=== PATIENT | male | born 1990 | race African-American/Black ===

== ENCOUNTER 2016-11-19 23:30 | Emergency (ER) | payer MEDICAID ==
--- NOTE | 2016-11-19 23:34 | ED Physician Chart ---
Chief Complaint/HPI - Patient Information Date Seen:: 11/19/16 Time Seen:: 23:34 Chief Complaint:: altered level of consciousness History of Present Illness:: 26-year-old male with apparent history of schizophrenia, brought in by ambulance with acute, moderate to severe, altered level of consciousness. Patient was patent about 20 minutes prior to arrival because friends had called 911 because he appeared to be more altered than usual. Patient admits to smoking marijuana. Patient denies any pain. Patient is acting as though he is under the influence of some type of street drugs. Staring off into space. Becoming agitated and aggressive. According to EMS he was recently released from a psychiatric facility. History limited patient has altered level of consciousness Most of history is provided by EMS Allergies:: Allergies Allergy/AdvReac Type Severity Reaction Status Date / Time MDX No Known Allergies - Nka Allergy Verified 04/08/14 00:01 [No Known Allergies - Nka] Historian:: Patient, EMS Review:: Nurse's Note Reviewed, EMS run form Reviewed Review of Systems - Review of Systems Other: Complete system review otherwise unremarkable except as noted in history of present illness. Past Medical History - Past Medical History Past Medical History: Other (schizophrenia) Family History: None Social History: Non Smoker, No Alcohol, Illicit Drug Use, Other Surgical History: None Psychiatricy History: None Medication: None Family Medical History - Family Member Mother Ethnicity: Unknown Living Status: Still Living Hx Family Cancer: No Hx Family Coronary Artery Disease: No Hx Family Congestive Heart Failure: No Hx Family Hypertension: No Hx Family Stroke: No Hx Family Diabetes: No Hx Family Seizures: No Hx Family Dementia: No Hx Family AIDS: No Hx Family HIV: No Hx Family COPD: No Hx Family Hepatitis: No Hx Family Psychiatric Problems: No Hx Family Tuberculosis: No Grandfather History Unknown: Yes Ethnicity: Non- Living Status: Still Living Hx Family Cancer: No Hx Family Coronary Artery Disease: No Hx Family Congestive Heart Failure: No Hx Family Hypertension: Yes Hx Family Stroke: No Hx Family Diabetes: No Hx Family Seizures: No Hx Family Dementia: No Hx Family AIDS: No Hx Family HIV: No Hx Family COPD: No Hx Family Hepatitis: No Hx Family Psychiatric Problems: No Hx Family Tuberculosis: No ED Septic Shock - . Is Septic Shock (SBP<90, OR Lactate>4 mmol\L) present?: No Reassessment (Disposition) - Reassessment Reassessment:: ED observation Note: Patient placed in ED observation status at: 0135am, to determine need for admission vs. potential discharge and outpatient follow-up. Patent re-evaluated every two hours during the ED course. Old records requested and reviewed. Additional history obtained from all available sources. Unable to find family history. Observation course revealed: Returned to alert and oriented 4. Patient very rational. At the time of final evaluation the patient appears appropriate for discharge and outpatient follow-up. Treated as: Altered level of consciousness Total ED observation time is greater than 3 hours. Total ED observation time was approximately 5.5 hours Blood pressure was noted to be elevated over 120/80. There were no signs of hypertension. Discussed the findings with the patient and recommended that the patient follow up with the primary care physician regarding the elevated blood pressure. Brought in with altered level of consciousness. Appears to be altered due to drug ingestion. Received some muscular sedation due to severe agitation and was endangering himself and staff. Patient became much more cooperative. Patient was allowed to metabolize the drugs. He stayed in the ER for some time. In the morning he was alert and oriented 4 and was ambulatory with no gait abnormalities. Patient was discharged home. Reassessment Condition:: Improved - Diagnosis Diagnosis:: Altered level of consciousness due to drug ingestion Elevated blood pressure without the diagnosis of hypertension - Aftercare/Follow up Instructions Aftercare/Follow-Up Instructions:: Counseled pt regarding lab results/diagnosis & need follow up, Refer to Discharge Instructions - Patient Disposition Discharge/Transfer:: Home Time:: 07:20 Condition at Disposition:: Improved ED Discharge Plan - Patient Disposition Admit/Discharge/Transfer: PT DISCHARGED HOME Condition at Disposition: Improved Instructions: Marijuana Abuse-Brief
[2016-11-19] MEDS ORDERED: Sodium Chloride 0.9% 1,000 ML IV ONE (23:37)
[2016-11-19] MEDS ORDERED: OLANZapine 5 mg Oral Disintegrating Tab PO ONE (23:47)
[2016-11-19] MEDS ORDERED: Haloperidol Lactate 5 mg/mL 1mL Vial IM STA (23:49)
[2016-11-20 00:19] LABS: % BASOPHILS 0.2 % (0.0-2.0); % EOSINOPHILS 1.8 % (0.0-5.0); % LYMPHOCYTES 32.5 % (20.0-50.0); % MONOCYTES 9.7 % (2.0-10.0); % NEUTROPHILS 55.8 % (40.0-80.0); HEMATOCRIT 46.5 % (39.0-49.0); HEMOGLOBIN 15.5 gm/dL (13.2-17.3); MEAN CELL VOLUME 89.7 fl (80-99); MEAN CORPUSCULAR HGB CONC 33.4 pg (28.0-36.0); MEAN PLATELET VOLUME 8.6 fl; NEUTROPHILE ABSOLUTE 6.1 Th/cmm (1.8-8.0); PLATELET COUNT 213 Th/cmm (150-400); RED BLOOD COUNT 5.18 Mil/cmm (4.30-5.70); RED CELL DISTRIBUTION WIDTH 12.5 % (11.5-20.0)
[2016-11-20 00:22] LABS: WHITE BLOOD COUNT 10.8 Th/cmm (4.8-10.8)
[2016-11-20 00:27] LABS: ALB/GLOB RATIO 1.4 (1.0-1.8); ALKALINE PHOSPHATASE 53 U/L (34-104); BILIRUBIN,TOTAL 0.4 mg/dL (0.3-1.0); BUN - UREA NITROGEN 13 mg/dL (7-25); BUN/CREATININE RATIO 14.4; CALCIUM SERUM 9.4 mg/dL (8.6-10.3); CARBON DIOXIDE 27.4 mEq/L (21.0-31.0); CHLORIDE 103 mEq/L (98-107); CREATININE - SERUM 0.9 mg/dL (0.7-1.3); GLUCOSE 138 mg/dL (70-105); POTASSIUM SERUM 3.4 mEq/L (3.5-5.1); SGOT 17 U/L (13-39); SGPT/ALT 15 U/L (7-52); SODIUM SERUM 135 mEq/L (136-145)
[2016-11-20 02:18] LABS: URINE BILIRUBIN SMALL (NEGATIVE); URINE BLOOD NEGATIVE (NEGATIVE); URINE COLOR YELLOW; URINE GLUCOSE (UA) NEGATIVE (NEGATIVE); URINE KETONE TRACE mg/dL (NEGATIVE)
[2016-11-20 02:19] LABS: URINE BACTERIA FEW /hpf (NONE SEEN); URINE EPITHELIAL CELLS MODERATE /lpf (FEW); URINE PROTEIN 30 mg/dL (NEGATIVE); URINE RBC 0-2 /hpf (0-5); URINE UROBILINOGEN 0.2 E.U./dL (0.2 - 1.0)
[2016-11-20 02:26] LABS: AMPHETAMINE URINE NEGATIVE (NEGATIVE); BARBITURATES URINE NEGATIVE (NEGATIVE); METHADONE URINE NEGATIVE (NEGATIVE)
== END 2016-11-20 07:20 | disposition home or self-care (01) ==
LOC: ER 23:30
DX: R40.4 Transient alteration of awareness (principal); T40.7X5A Adverse effect of cannabis (derivatives), initial encounter; R03.0 Elevated blood-pressure reading, without diagnosis of hypertension; F20.9 Schizophrenia, unspecified; Y92.89 Other specified places as the place of occurrence of the external cause
CPT/HCPCS: 36415-UA; 80053-TC; 80320-TC; 81001-TC; 85025-TC; Z7502

== ENCOUNTER 2016-11-22 11:01 | Emergency (ER) | payer MEDICAID ==
[2016-11-22 11:53] LABS: % LYMPHOCYTES 10.9 % (20.0-50.0); % NEUTROPHILS 84.1 % (40.0-80.0); HEMATOCRIT 45.7 % (39.0-49.0); HEMOGLOBIN 15.3 gm/dL (13.2-17.3); MEAN CELL VOLUME 89.5 fl (80-99); MEAN CORPUSCULAR HEMOGLOBIN 30.1 pg (26.0-30.0); MEAN CORPUSCULAR HGB CONC 33.6 pg (28.0-36.0); MEAN PLATELET VOLUME 8.7 fl; NEUTROPHILE ABSOLUTE 9.9 Th/cmm (1.8-8.0); PLATELET COUNT 216 Th/cmm (150-400); RED CELL DISTRIBUTION WIDTH 12.5 % (11.5-20.0); WHITE BLOOD COUNT 11.8 Th/cmm (4.8-10.8)
[2016-11-22 12:04] LABS: AMPHETAMINE URINE NEGATIVE (NEGATIVE); BARBITURATES URINE NEGATIVE (NEGATIVE); METHADONE URINE NEGATIVE (NEGATIVE)
[2016-11-22 12:08] LABS: ACETAMINOPHEN < 10.0 ug/mL (10.0-30.0); ANION GAP 4.9 (7.0-16.0); BUN - UREA NITROGEN 11 mg/dL (7-25); BUN/CREATININE RATIO 12.2; CALCIUM SERUM 9.9 mg/dL (8.6-10.3); CARBON DIOXIDE 33.2 mEq/L (21.0-31.0); CHLORIDE 104 mEq/L (98-107); CREATININE - SERUM 0.9 mg/dL (0.7-1.3); GLUCOSE 93 mg/dL (70-105); POTASSIUM SERUM 4.1 mEq/L (3.5-5.1); SODIUM SERUM 138 mEq/L (136-145)
--- NOTE | 2016-11-22 12:31 | ED Physician Chart ---
Chief Complaint/HPI - Patient Information Date Seen:: 11/22/16 Time Seen:: 11:15 Chief Complaint:: thoughts of self-harm History of Present Illness:: Patient ran out of his medications of Ativan and Zyprexa yesterday. He is homeless. He was last given a prescription for medication 3 days ago in [place]. Patient wishes to go to [facility]. He was last there sometime between 2 weeks ago and. 4 weeks ago. Patient has suicide ideation walking in traffic for jumping off something. Jumping off something is patient's exact words. Allergies:: Allergies Allergy/AdvReac Type Severity Reaction Status Date / Time No Known Allergies Allergy Verified 11/19/16 23:53 Vitals:: Vital Signs - 8 hr 11/22/16 11:26 Temp 97.9 F HR 66 RR 16 O2 Sat % 98 Historian:: Patient, EMS Review:: Nurse's Note Reviewed Review of Systems - Review of Systems General/Constitutional: No fever, No chills Skin: No skin lesions Head: No headache Eyes: No loss of vision ENT: No earache Neck: No neck pain Cardio Vascular: No chest pain, No palpitations Pulmonary: No SOB GI: No nausea, No vomiting G/U: No dysuria Musculoskeletal: No bone or joint pain Endocrine: No polyuria, No polydipsia Psychiatric: Prior psych history, Suicidal ideation Hematopoietic: No bruising, No lymphadenopathy Allergic/Immuno: No urticaria Neurological: No syncope, No focal symptoms Past Medical History - Past Medical History Past Medical History: No significant medical hx Family History: Diabetes Melitus, HTN Social History: Smoker, Other (smokes about 2 cigarettes a day) Surgical History: other (mandibular fracture) Medication: Reviewed Family Medical History - Family Member Father Hx Family Hypertension: Yes Hx Family Diabetes: Yes Mother Ethnicity: Unknown Living Status: Still Living Hx Family Cancer: No Hx Family Coronary Artery Disease: No Hx Family Congestive Heart Failure: No Hx Family Hypertension: No Hx Family Stroke: No Hx Family Diabetes: No Hx Family Seizures: No Hx Family Dementia: No Hx Family AIDS: No Hx Family HIV: No Hx Family COPD: No Hx Family Hepatitis: No Hx Family Psychiatric Problems: No Hx Family Tuberculosis: No Grandfather History Unknown: Yes Ethnicity: Non- Living Status: Still Living Hx Family Cancer: No Hx Family Coronary Artery Disease: No Hx Family Congestive Heart Failure: No Hx Family Hypertension: Yes Hx Family Stroke: No Hx Family Diabetes: No Hx Family Seizures: No Hx Family Dementia: No Hx Family AIDS: No Hx Family HIV: No Hx Family COPD: No Hx Family Hepatitis: No Hx Family Psychiatric Problems: No Hx Family Tuberculosis: No Physical Exam - Physical Examination General/Constitutional: Well-developed, well-nourished, Alert, No distress Head: Atraumatic Eyes: Lids, conjuctiva normal, PERRL Skin: Nl inspection, No rash, No skin lesions, No ecchymosis, Well hydrated, No lymphadenopathy ENMT: External ears, nose nl, TM canals nl, Nasal exam nl, Lips, teeth, gums nl , Oropharynx nl, Tonsils nl Neck: No nuchal rigidity Respiratory: Nl effort/Exclusion, Clear to Auscultation, No Wheeze/Rhonchi/Rales Cardio Vascular: RRR, No murmur, gallop, rubs GI: No tenderness/rebounding/guarding, No organomegaly, No hernia : No CVA tenderness Extremities: No tenderness or effusion, Full ROM, normal strength in all extremities, No edema, Normal digits & nails Neuro/Psych: Alert/oriented, No focal deficits Misc: Normal back Labs/Radiology/EKG Results - Lab Results Results: Laboratory Tests 11/22/16 11/22/16 11/22/16 11:30 11:40 11:40 WBC 11.8 H RBC 5.10 Hgb 15.3 Hct 45.7 MCV 89.5 MCH 30.1 H MCHC Differential 33.6 RDW 12.5 Plt Count 216 MPV 8.7 Neutrophils % 84.1 H Lymphocytes % 10.9 L Monocytes % 4.0 Eosinophils % 1.0 Basophils % 0.0 Sodium 138 Potassium 4.1 Chloride 104 Carbon Dioxide 33.2 H Anion Gap 4.9 L BUN 11 Creatinine 0.9 Est GFR ( Amer) > 60.0 Est GFR (Non-Af Amer) > 60.0 BUN/Creatinine Ratio 12.2 Glucose 93 Calcium 9.9 Salicylates < 25.0 L Urine Opiates Screen NEGATIVE Urine Methadone Screen NEGATIVE Acetaminophen < 10.0 L Ur Barbiturates Screen NEGATIVE Ur Tricyclics Screen NEGATIVE Ur Phencyclidine Scrn NEGATIVE Amphetamines Screen NEGATIVE U Methamphetamines Scrn NEGATIVE U Benzodiazepines Scrn POSITIVE H U Cocaine Metab Screen NEGATIVE U Cannabinoids Screen POSITIVE H Ethyl Alcohol < 10 Assessment - Assessment General Assessment: Patient eloped from the emergency department at at about 1305. Police were notified. ED Septic Shock - . Is Septic Shock (SBP<90, OR Lactate>4 mmol\L) present?: No - <6hrs of presentation: Vital Signs: Vital Signs - 8 hr 11/22/16 11:26 Temp 97.9 F HR 66 RR 16 O2 Sat % 98 Reassessment (Disposition) - Reassessment Reassessment Condition:: Unchanged - Diagnosis Diagnosis:: Bipolar disorder; schizophrenia; depression; suicidal ideation - Patient Disposition Discharge/Transfer:: Elope/AWOL Condition at Disposition:: Stable, Unchanged
== END 2016-11-22 13:05 | disposition left against medical advice (07) ==
LOC: ER 11:01
DX: R45.851 Suicidal ideations (principal); F31.9 Bipolar disorder, unspecified; F20.9 Schizophrenia, unspecified; F17.210 Nicotine dependence, cigarettes, uncomplicated
CPT/HCPCS: 36415-UA; 80048-TC; 80320-TC; 80329-TC; 85025-TC; Z7502

== ENCOUNTER 2017-08-22 13:57 | Inpatient (IN) | payer MEDICAID ==
--- NOTE | 2017-08-22 14:37 | ED Physician Chart ---
ED Chief Complaint/HPI - Patient Information Date Seen:: 08/22/17 Time Seen:: 14:15 Chief Complaint:: Chest Pain History of Present Illness:: onset x one day of intermittent, MS type, dull, right Chest Pain with psychotic behavior; no trauma, H/As, neck pain, SOB, cough, Abd. Pain, A/N/V/d/c, fever, chills, or urinary s/s; no report of SIs Allergies:: Allergies Allergy/AdvReac Type Severity Reaction Status Date / Time No Known Allergies Allergy Verified 08/22/17 14:22 Vitals:: Vital Signs - 8 hr 08/22/17 14:18 Temp 98.8 F HR 84 RR 16 BP 146/96 O2 Sat % 97 Historian:: Patient, EMS Review:: Nurse's Note Reviewed, EMS run form Reviewed ED Review of Systems - Review of Systems General/Constitutional: No fever, No chills, No weight loss, No weakness, No diaphoresis, No edema, No loss of appetite Skin: No skin lesions, No rash, No bruising Head: No headache, No light-headedness Eyes: No loss of vision, No pain, No diplopia ENT: No earache, No nasal drainage, No sore throat, No tinnitus Neck: No neck pain, No swelling, No thyromegaly, No stiffness, No mass noted Cardio Vascular: Chest pain, No palpitations, No PND, No orthopnea, No edema Pulmonary: No SOB, No cough, No sputum, No wheezing GI: No nausea, No vomiting, No diarrhea, No pain, No melena, No hematochezia, No constipation, No hematemesis G/U: No dysuria, No frequency, No hematuria, No nacturia Musculoskeletal: No bone or joint pain, No back pain, No muscle pain Endocrine: No polyuria, No polydipsia Psychiatric: Prior psych history, No depression, No anxiety, No suicidal ideation, No homicidal ideation, Auditory hallucination, No visual hallucination Hematopoietic: No bruising, No lymphadenopathy Allergic/Immuno: No urticaria, No angioedema Neurological: No syncope, No focal symptoms, No weakness, No paresthesia, No headache, No seizure, No dizziness, No confusion, No vertigo ED Past Medical History - Past Medical History Obtainable: Yes Past Medical History: No significant medical hx Family History: None Social History: Non Smoker, No Alcohol, No Drug Use, Single Surgical History: None Psychiatricy History: Schizophrenia, Bipolar Medication: Reviewed Family Medical History - Family Member Father History Unknown: Yes Ethnicity: Non- Living Status: Unknown Hx Family Hypertension: Yes Hx Family Diabetes: Yes Mother Ethnicity: Unknown Living Status: Still Living Hx Family Cancer: No Hx Family Coronary Artery Disease: No Hx Family Congestive Heart Failure: No Hx Family Hypertension: No Hx Family Stroke: No Hx Family Diabetes: No Hx Family Seizures: No Hx Family Dementia: No Hx Family AIDS: No Hx Family HIV: No Hx Family COPD: No Hx Family Hepatitis: No Hx Family Psychiatric Problems: No Hx Family Tuberculosis: No Grandfather History Unknown: Yes Ethnicity: Non- Living Status: Still Living Hx Family Cancer: No Hx Family Coronary Artery Disease: No Hx Family Congestive Heart Failure: No Hx Family Hypertension: Yes Hx Family Stroke: No Hx Family Diabetes: No Hx Family Seizures: No Hx Family Dementia: No Hx Family AIDS: No Hx Family HIV: No Hx Family COPD: No Hx Family Hepatitis: No Hx Family Psychiatric Problems: No Hx Family Tuberculosis: No ED Physical Exam - Physical Examination General/Constitutional: Awake, Well-developed, well-nourished, Alert, No distress, GCS 15, Non-toxic appearing, Ambulatory Head: Atraumatic Eyes: Lids, conjuctiva normal, PERRL, EOMI Skin: Nl inspection, No rash, No skin lesions, No ecchymosis, Well hydrated, No lymphadenopathy ENMT: External ears, nose nl, TM canals nl, Nasal exam nl, Lips, teeth, gums nl , Oropharynx nl, Tonsils nl Neck: Nontender, Full ROM w/o pain, No JVD, No nuchal rigidity, No bruit, No mass, No stridor Respiratory: Nl effort/Exclusion, Clear to Auscultation, No Wheeze/Rhonchi/Rales Cardio Vascular: RRR, No murmur, gallop, rubs, NL S1 S2, Carotid/Femoral/Distal pulses equal bilaterally GI: No tenderness/rebounding/guarding, No organomegaly, No hernia, Normal BS's, Nondistended, No mass/bruits, No McBurney tenderness : No CVA tenderness Extremities: No tenderness or effusion, Full ROM, normal strength in all extremities, No edema, Normal digits & nails Neuro/Psych: Alert/oriented, DTR's symmetric, Normal sensory exam, Normal motor strength, Judgement/insight normal, Mood normal, Normal gait, No focal deficits Other Neuro/Psych comments:: + Psychomotor Agitation; + Hallucinations; Mood/Affect: Labile Misc: Normal back, No paraspinal tenderness ED Septic Shock - . Is Septic Shock (SBP<90, OR Lactate>4 mmol\L) present?: No - <6hrs of presentation: Vital Signs: Vital Signs - 8 hr 08/22/17 14:18 Temp 98.8 F HR 84 RR 16 BP 146/96 O2 Sat % 97 ED Reassessment (Disposition) - Reassessment Reassessment Condition:: Improved - Diagnosis Diagnosis:: Chest Wall Pain; Costochondritis; Hallucinations; Schizophrenia; Psychosis; Bipolar Disorder
[2017-08-22] MEDS ORDERED: Haloperidol Lactate 5 mg/mL 1mL Vial IM STA ×2 (14:38→17:40)
[2017-08-22] MEDS ORDERED: Haloperidol Lactate 5 mg/mL 1mL Vial ONE ×2 (14:39→17:41)
[2017-08-22] MEDS ORDERED: cefTRIAXone 1 GM in Sodium Chloride 0.9% 50 ML IV ONE (14:43)
[2017-08-22 15:08] LABS: INR 1.05 (0.5-1.4); PROTHROMBIN TIME (TEST) 10.9 SECONDS (9.5-11.5)
[2017-08-22 15:09] LABS: % EOSINOPHILS 0.8 % (0.0-5.0); % LYMPHOCYTES 16.7 % (20.0-50.0); % MONOCYTES 6.6 % (2.0-10.0); % NEUTROPHILS 75.9 % (40.0-80.0); EOSINOPHILE ABSOLUTE 0.1 Th/cmm (0.1-0.4); HEMATOCRIT 49.6 % (41.0-60); HEMOGLOBIN 16.2 gm/dL (12-16); MEAN CORPUSCULAR HEMOGLOBIN 29.8 pg (26.0-30.0); MEAN CORPUSCULAR HGB CONC 32.7 pg (28.0-36.0); MEAN PLATELET VOLUME 8.5 fl; MONOCYTE ABSOLUTE 0.8 Th/cmm (0.3-1.0); PLATELET COUNT 258 Th/cmm (150-400); RED BLOOD COUNT 5.45 Mil/cmm (4.30-5.70); WHITE BLOOD COUNT 11.9 Th/cmm (4.8-10.8)
[2017-08-22 15:13] LABS: ALB/GLOB RATIO 1.2 (1.0-1.8); ALBUMIN 4.6 gm/dL (4.2-5.5); ALKALINE PHOSPHATASE 55 U/L (34-104); ANION GAP 12.1 (7.0-16.0); BILIRUBIN,TOTAL 0.6 mg/dL (0.3-1.0); BUN - UREA NITROGEN 10 mg/dL (7-25); CALCIUM SERUM 10.1 mg/dL (8.6-10.3); CARBON DIOXIDE 27.2 mEq/L (21.0-31.0); CHLORIDE 99 mEq/L (98-107); CHOLESTEROL 124 mg/dL (<200); CREATININE KINASE 1036 U/L (30-223); GFR AFRICAN-AMERICAN > 60.0 ml/min (>90); GFR NON AFRICAN-AMERICAN > 60.0 ml/min; GLUCOSE 85 mg/dL (70-105); HDL -HIGH DENSITY LIPOPROTEIN 49 mg/dL (23-92); POTASSIUM SERUM 3.3 mEq/L (3.5-5.1); SGOT 44 U/L (13-39); SGPT/ALT 23 U/L (7-52); SODIUM SERUM 135 mEq/L (136-145); TOTAL PROTEIN,SERUM 8.4 gm/dL (6.0-8.3); TRIGLYCERIDES 43 mg/dL (<150)
[2017-08-22 15:15] LABS: ACETAMINOPHEN < 10.0 ug/mL (10.0-30.0); SALICYLATES (ASPIRIN) < 25.0 mg/L (30.0-100.0)
[2017-08-22 16:50] LABS: A1C % 5.4 % (4.0-6.0)
[2017-08-22 18:19] LABS: URINE MICROSCOPIC INDICATED? YES; URINE SOURCE CLEAN C
[2017-08-22 18:26] LABS: URINE BILIRUBIN NEGATIVE (NEGATIVE); URINE BLOOD NEGATIVE (NEGATIVE); URINE GLUCOSE (UA) NEGATIVE (NEGATIVE); URINE KETONE 40 mg/dL (NEGATIVE); URINE LEUKOCYTE ESTERASE NEGATIVE (NEGATIVE); URINE NITRATE NEGATIVE (NEGATIVE); URINE PROTEIN TRACE mg/dL (NEGATIVE); URINE UROBILINOGEN 0.2 E.U./dL (0.2 - 1.0)
[2017-08-22 18:38] LABS: URINE CLARITY CLEAR (CLEAR); URINE COLOR YELLOW
[2017-08-22 18:39] LABS: URINE BACTERIA NONE SEEN /hpf (NONE SEEN); URINE EPITHELIAL CELLS NONE SEEN /lpf (FEW); URINE RBC NONE SEEN /hpf (0-5); URINE WBC NONE SEEN /hpf (0-5)
[2017-08-22 18:56] LABS: AMPHETAMINE URINE NEGATIVE (NEGATIVE); BARBITURATES URINE NEGATIVE (NEGATIVE); BENZODIAZEPINES QUAL URINE NEGATIVE (NEGATIVE); CANNABINOID THC POSITIVE (NEGATIVE); COCAINE METABOLITE QUAL URINE NEGATIVE (NEGATIVE); METHADONE URINE NEGATIVE (NEGATIVE); METHAMPHETAMINES QUAL URINE NEGATIVE (NEGATIVE); OPIATES (MORPHINE) QUAL. URINE NEGATIVE (NEGATIVE); PHENCYCLIDINE (PCP) URINE NEGATIVE (NEGATIVE); TRICYCLICS (TCA) QUAL. URINE NEGATIVE (NEGATIVE)
[2017-08-22] MEDS ORDERED: Potassium Chloride 20 mEq ER Tab PO ONE ×2 (19:46→19:47)
[2017-08-22] MEDS ORDERED: Aspirin 325 mg EC PO ONE (20:05)
[2017-08-22] MEDS ORDERED: Aspirin 81mg Chewable Tab ONE (20:29)
[2017-08-22] MEDS ORDERED: Morphine Sulfate 2 mg/mL 1mL Syr IVP PRN (21:16)
[2017-08-22] MEDS ORDERED: Potassium Chloride 20 mEq ER Tab PO PRN (21:16)
[2017-08-22] MEDS ORDERED: Potassium Chloride 40 MEQ, Lidocaine 1% 20mL Vial 25 MG in Sodium Chloride 0.9% 250 ML IV PRN (21:16)
[2017-08-22] MEDS ORDERED: Mag Sulfate 2gm/50mL Premix 2 GM/50 ML BAG IV PRN (21:16)
[2017-08-22] MEDS ORDERED: Sodium Chloride 0.9% 1,000 ML IV SCH ×2 (21:30)
[2017-08-22 23:52] VITALS: BP 140/99
[2017-08-23 06:45] LABS: % BASOPHILS 0.2 % (0.0-2.0); % EOSINOPHILS 3.9 % (0.0-5.0); % LYMPHOCYTES 26.5 % (20.0-50.0); % MONOCYTES 7.1 % (2.0-10.0); % NEUTROPHILS 62.3 % (40.0-80.0); EOSINOPHILE ABSOLUTE 0.3 Th/cmm (0.1-0.4); HEMATOCRIT 47.9 % (41.0-60); HEMOGLOBIN 15.8 gm/dL (12-16); LYMPHOCYTE ABSOLUTE 2.3 Th/cmm (1.5-3.0); MEAN CELL VOLUME 91.1 fl (80-99); MEAN CORPUSCULAR HGB CONC 32.9 pg (28.0-36.0); MEAN PLATELET VOLUME 8.7 fl; MONOCYTE ABSOLUTE 0.6 Th/cmm (0.3-1.0); NEUTROPHILE ABSOLUTE 5.3 Th/cmm (1.8-8.0); PLATELET COUNT 259 Th/cmm (150-400); RED BLOOD COUNT 5.26 Mil/cmm (4.30-5.70); RED CELL DISTRIBUTION WIDTH 13.3 % (11.5-20.0)
[2017-08-23 06:56] LABS: WHITE BLOOD COUNT 8.5 Th/cmm (4.8-10.8)
[2017-08-23 07:06] LABS: ANION GAP 8.1 (7.0-16.0); BUN - UREA NITROGEN 13 mg/dL (7-25); CALCIUM SERUM 9.7 mg/dL (8.6-10.3); CARBON DIOXIDE 27.7 mEq/L (21.0-31.0); CHLORIDE 104 mEq/L (98-107); CREATININE KINASE 2301 U/L (30-223); GFR AFRICAN-AMERICAN > 60.0 ml/min (>90); GFR NON AFRICAN-AMERICAN > 60.0 ml/min; GLUCOSE 89 mg/dL (70-105); POTASSIUM SERUM 3.8 mEq/L (3.5-5.1); SODIUM SERUM 136 mEq/L (136-145)
--- NOTE | 2017-08-23 08:09 | Diagnostic Imaging Report ---
CHEST X-RAY: AP view INDICATION: pain COMPARISON: 08/17/2015 FINDINGS: There is no focal consolidation or pleural effusions The heart is normal in size. The osseous structures demonstrate no acute abnormalities. IMPRESSION: No acute cardiopulmonary disease.
--- NOTE | 2017-08-23 08:40 | Discharge Summary ---
DATE OF DISCHARGE: 08/23/2017 DATE OF PATIENT LEAVING AMA: 08/23/2017. CAUSE OF ADMISSION: The patient is a 27-year-old male who came to the hospital because of chest pain. He was found to have hypokalemia, elevated creatinine kinase as well. He has history of mood disorder and possible underlying other psychiatric issues including bipolar and/or schizophrenia. He was admitted for chest pain and elevated creatinine kinase and hypokalemia. ADMITTING DIAGNOSES: 1. Chest pain. 2. Marijuana dependence. 3. Gastroesophageal reflux disease. 4. Hypokalemia. 5. Elevated creatinine kinase. DISCHARGE DIAGNOSES: As above. SUMMARY OF HOSPITAL COURSE: The patient was placed on telemetry. I started him on heparin and aspirin. He has been refusing most IVs and medications as well. He was on IV fluids. Potassium has replenished. I repeated creatinine kinase, which is increasing. The patient is leaving against medical advice. I had a long discussion with him and explained to him that his creatinine is going up, he could have something underlying, which could be dangerous. He states that he does not care and he wants to leave AMA. He is in the process of leaving. Physical exam and labs as charted. CONSULTS: Dr. Jarrod Walls for Cardio. DISPOSITION: However, the patient is leaving without being seen. JOB# [id number]
--- NOTE | 2017-08-23 09:14 | History & Physical ---
ADMIT DATE: 08/22/2017 CHIEF COMPLAINT: Chest pain. HISTORY OF PRESENT ILLNESS: The patient is a 27-year-old male. He has history of schizophrenia and mood disorder and possibly bipolar disorder as well. He came to the hospital complaining of chest pain. This morning, when I saw the patient, he is already in the process signing out AMA. He states that he is feeling better. He wants to leave and he states the chest pain was left-sided, it did not radiate and he thought he should come to the hospital. He states that he goes to the hospital very often. PAST MEDICAL HISTORY: Significant for mood disorder, schizophrenia, and possibly bipolar. SOCIAL HISTORY: He smokes marijuana routinely. He refuses to answer any questions regarding other drug abuse or alcohol abuse. FAMILY HISTORY: Noncontributory. ALLERGIES: No known drug allergies. PAST SURGICAL HISTORY: Denies any recent surgeries. MEDICATIONS: There is no home med list right now. He has not brought it with him. REVIEW OF SYSTEMS: GENERAL: Negative for recent fever, fatigue or chills. HEENT: No recent head trauma, change in vision, taste, hearing, or smell. Oral: No recent pain or discharge. NECK: No recent tracheal deviation. ABDOMEN: No recent pain or discharge. CARDIOVASCULAR: Positive for chest pain that lasted briefly yesterday. MUSCULOSKELETAL: He denies any muscle trauma or muscle pain. I discussed his elevated creatinine kinase. He denies any pain. SKIN: No recent rashes. PSYCHIATRIC: He has history of mood disorder and possibly schizophrenia. NEUROLOGIC: No history of stroke or seizure. PHYSICAL EXAMINATION: VITAL SIGNS: Temperature 97.4 degrees, heart rate is 82, respirations 15, blood pressure 140/99. Currently, no pain. GENERAL: No acute distress. He is awake and alert and he wants to sign out AMA. HEENT: No acute issues. NECK: Trachea is midline. CARDIOVASCULAR: Regular rate and rhythm. ABDOMEN: Nontender, nondistended. SKIN: No rashes. PSYCHIATRIC: He has labile mood, but no psychosis. EXTREMITIES: No edema. SKIN: No rashes. LABORATORY DATA: UA is negative. White count is 8.5, hemoglobin is 15.8, and platelet count is 259,000. INR is 1.05. Sodium 136, potassium 3.8, chloride 104, bicarbonate 27.7, BUN 13, creatinine is 1. Creatinine kinase is elevated at 2301. Troponin less than 0.01. Chest x-ray is pending. ASSESSMENT: 1. Chest pain. 2. Marijuana dependence. 3. Hypokalemia. 4. Elevated creatinine kinase. 5. Chest pain, likely secondary to gastroesophageal reflux disease. PLAN: The patient is being monitored in telemetry. I put him on heparin and he has been refusing IV and other medications as well. Cardiology has been consulted. I repeated his creatinine kinase, which is elevated. He is on a cardiac diet. I started p.r.n. meds and IV fluids as well. His potassium has been replenished. JOB# [id number]
[2017-08-25] MEDS ORDERED: Influenza Vaccine 0.5 mL Syr IM ONE (09:00)
== END 2017-08-23 08:15 | disposition left against medical advice (07) | DRG 203 ==
LOC: ER 13:57 → TELE 20:10
PROVIDERS: ADMIT General Practice; ATTEND General Practice
DX: R07.89 Other chest pain (principal); F20.9 Schizophrenia, unspecified; E87.6 Hypokalemia; D72.829 Elevated white blood cell count, unspecified; F31.9 Bipolar disorder, unspecified; M94.0 Chondrocostal junction syndrome [Tietze]; F12.20 Cannabis dependence, uncomplicated; Z53.21 Procedure and treatment not carried out due to patient leaving prior to being seen by health care provider
CPT/HCPCS: 36415-UA; 71045-TC; 80048-TC; 80053-TC; 80061-TC; 80307; 80320-TC; 80329-TC; 81001-TC; 82550-TC; 82553; 83036-90; 83735-TC; 83880-TC; 84443-TC; 84484-TC; 85025-TC; 85610-TC; 86592-TC; 93005; 94760; J0696; J1200; J1630; J2060; J2270; J7030; Z7610